=== PATIENT | female | born 1955 | race Caucasian/White ===

== ENCOUNTER 2017-06-13 19:01 | Emergency (ER) | payer MEDICAID ==
[~2017-06-13] VITALS: Ht 154.9 cm; Wt 80.3 kg
[~2017-06-13 19:01] MED LIST: HYDR-3193 PO; IBUP-1985 PO; LEVO50TA8 PO
[2017-06-13 19:42] VITALS: BP 142/89
[2017-06-13] MEDS ORDERED: diazepam 5mg tablet PO ONE (21:00)
[2017-06-13] MEDS ORDERED: ketorolac tromethamine 15mg/ml inj. IM ONE (21:00)
[2017-06-13] MEDS ORDERED: METH-360 PO (21:04)
[2017-06-13] MEDS ORDERED: IBUP-1985 PO (21:04)
== END 2017-06-13 21:41 | disposition home or self-care (01) ==
LOC: ER 19:01
DX: M54.5 Low back pain (principal); F32.9 Major depressive disorder, single episode, unspecified; Z88.2 Allergy status to sulfonamides; Z88.0 Allergy status to penicillin; Z79.899 Other long term (current) drug therapy; Z90.710 Acquired absence of both cervix and uterus; Z90.89 Acquired absence of other organs
CPT/HCPCS: 96372; 99283; J1885

== ENCOUNTER 2017-09-10 22:06 | Emergency (ER) | payer MEDICAID ==
[~2017-09-10] VITALS: Ht 154.9 cm; Wt 80.0 kg
[~2017-09-10 22:06] MED LIST changes: +METH-360 PO
[2017-09-10 22:09] VITALS: BP 128/75
[2017-09-10 22:51] LABS: BASOPHILS % (AUTO) 0.8 % (0-1); EOSINOPHILS # (AUTO) 0.2 X10'3 (0-0.9); EOSINOPHILS % (AUTO) 4.2 % (0-6); HEMATOCRIT 37.2 % (35.0-45.0); HEMOGLOBIN 12.5 g/dl (12.0-16.0); LYMPHOCYTES # (AUTO) 1.4 X10'3 (1.1-4.8); LYMPHOCYTES % (AUTO) 25.5 % (21-51); MEAN CORPUSCULAR HEMOGLOBIN 30.9 PG (27.0-31.0); MEAN CORPUSCULAR HGB CONC 33.7 % (33.0-36.5); MEAN CORPUSCULAR VOLUME 91.7 FL (78-98); MEAN PLATELET VOLUME 9.5 FL (7.4-10.4); MONOCYTES # (AUTO) 0.7 X10'3 (0-0.9); NEUTROPHILS % (AUTO) 56.5 % (42-75); PLATELET COUNT 160 X10'3 (140-440); RED BLOOD COUNT 4.05 X10'6 (4.20-5.60); RED CELL DISTRIBUTION WIDTH 12.6 % (11.5-14.5); WHITE BLOOD COUNT 5.3 X10'3 (4.5-11.0)
[2017-09-10 23:03] LABS: PARTIAL THROMBOPLASTIN TIME 26 SECONDS (22-32); PROTHROMBIN TIME 9.9 SECONDS (9.0-12.0)
[2017-09-10 23:07] LABS: ALANINE AMINOTRANSFERASE 26 U/L (12-78); ALBUMIN 3.4 G/DL (3.4-5.0); ALKALINE PHOSPHATASE 105 IU/L (46-116); ANION GAP 10 (8-16); ASPARTATE AMINO TRANSFERASE 18 U/L (10-37); BILIRUBIN,TOTAL 0.4 MG/DL (0.1-1.0); BLOOD UREA NITROGEN 16 MG/DL (7-18); BUN/CREATININE RATIO 20.3 (6.6-38.0); CALCIUM 8.9 MG/DL (8.5-10.1); CHLORIDE 108 MMOL/L (99-107); CREATININE 0.79 MG/DL (0.40-0.90); GLUCOSE 109 MG/DL (70-104); POTASSIUM 3.7 MMOL/L (3.5-5.1); SODIUM 144 MMOL/L (135-145); TOTAL CARBON DIOXIDE 26.3 MMOL/L (24-32); TOTAL PROTEIN 6.7 G/DL (6.4-8.2); eGFR 74 ML/MIN
[2017-09-11] MEDS ORDERED: HYDR-569 PO (02:12)
== END 2017-09-11 02:27 | disposition home or self-care (01) ==
LOC: ER 22:06
DX: R07.89 Other chest pain (principal); Z90.710 Acquired absence of both cervix and uterus; Z88.0 Allergy status to penicillin; Z88.2 Allergy status to sulfonamides; Z79.899 Other long term (current) drug therapy; Z90.89 Acquired absence of other organs
CPT/HCPCS: 36415; 71045; 80053; 84484; 85025; 85610; 85730; 93005; 99285

== ENCOUNTER 2018-04-01 10:40 | Emergency (ER) | payer MEDICAID ==
[~2018-04-01] VITALS: Ht 154.9 cm; Wt 77.3 kg
[~2018-04-01 10:40] MED LIST changes: +HYDR-4383 PO
--- NOTE | 2018-04-01 10:55 | NUR ---
PTS PILLS COUNTED AND FOUND TO HAVE TAKEN 7 PILLS. POSION CONTROL CONTACTED. HE STATES THIS IS STILL A LOW DOSE AND WOULD NOT EXPECT MANY S/S. THE STATES THE EFFECTS WOULD BE DELAYED A COUPLE OF DAYS WITH LARGER DOSE. RECOMENDS BASELINE TSH, CMP, ASA, AND TYLENOL LEVEL.
--- NOTE | 2018-04-01 11:00 | NUR ---
pt is 62 yo female BIB boyfriend of 14 years for suicide attempt, pt took 7 tabs of levothryrine 100 mcg at 1030 today, pt said she and her boyfriend are breaking up because he thinks she is cheating, she denies cheating, pt is calm, cooperative, tearful, resp even and unlabored, skin p/w/d, pt says she sees psych provider at [facility], unable to take meds for depression "they make me sick", has attempted suicide in the past 3x (last time was 4-5 years ago) by overdosing on medications.
--- NOTE | 2018-04-01 11:08 | NUR ---
Carlos ALCALA at bedside to meera urena
[2018-04-01] MEDS ORDERED: PANT-47 PO (11:19)
[2018-04-01] MEDS ORDERED: LEVO100T PO (11:19)
--- NOTE | 2018-04-01 11:22 | NUR ---
pt amb with steady gait to restroom
[2018-04-01 11:27] LABS: BASOPHILS # (AUTO) 0.1 X10'3 (0-0.2); BASOPHILS % (AUTO) 1.1 % (0-1); EOSINOPHILS # (AUTO) 0.2 X10'3 (0-0.9); EOSINOPHILS % (AUTO) 3.6 % (0-6); HEMATOCRIT 38.2 % (35.0-45.0); HEMOGLOBIN 12.9 g/dl (12.0-16.0); LYMPHOCYTES # (AUTO) 1.1 X10'3 (1.1-4.8); LYMPHOCYTES % (AUTO) 23.8 % (21-51); MEAN CORPUSCULAR HEMOGLOBIN 31.1 PG (27.0-31.0); MEAN CORPUSCULAR HGB CONC 33.9 % (33.0-36.5); MEAN CORPUSCULAR VOLUME 91.9 FL (78-98); MEAN PLATELET VOLUME 9.4 FL (7.4-10.4); MONOCYTES # (AUTO) 0.5 X10'3 (0-0.9); MONOCYTES % (AUTO) 10.7 % (2-12); NEUTROPHILS # (AUTO) 2.9 X10'3 (1.8-7.7); NEUTROPHILS % (AUTO) 60.8 % (42-75); PLATELET COUNT 161 X10'3 (140-440); RED BLOOD COUNT 4.16 X10'6 (4.20-5.60); RED CELL DISTRIBUTION WIDTH 12.8 % (11.5-14.5); WHITE BLOOD COUNT 4.8 X10'3 (4.5-11.0)
[2018-04-01 11:41] LABS: ALANINE AMINOTRANSFERASE 22 U/L (12-78); ALBUMIN 3.3 G/DL (3.4-5.0); ALKALINE PHOSPHATASE 76 IU/L (46-116); ANION GAP 10 (8-16); ASPARTATE AMINO TRANSFERASE 18 U/L (10-37); BILIRUBIN,TOTAL 0.7 MG/DL (0.1-1.0); BLOOD UREA NITROGEN 10 MG/DL (7-18); BUN/CREATININE RATIO 15.4 (6.6-38.0); CALCIUM 8.3 MG/DL (8.5-10.1); CHLORIDE 106 MMOL/L (99-107); CREATININE 0.65 MG/DL (0.40-0.90); GLUCOSE 95 MG/DL (70-104); POTASSIUM 3.6 MMOL/L (3.5-5.1); SODIUM 141 MMOL/L (135-145); TOTAL CARBON DIOXIDE 25.3 MMOL/L (24-32); TOTAL PROTEIN 6.7 G/DL (6.4-8.2); eGFR > 90 ML/MIN
[2018-04-01 11:50] LABS: ETHANOL < 0.010 GM/DL (0.0-0.010)
[2018-04-01 12:09] LABS: URINE AMPHETAMINE SCREEN NEGATIVE (Neg); URINE BARBITUATE SCREEN NEGATIVE (Neg); URINE BENZODIAZEPINES SCREEN NEGATIVE (Neg); URINE CANNABINOID SCREEN NEGATIVE (Neg); URINE COCAINE SCREEN NEGATIVE (Neg); URINE HCG NEGATIVE (NEG); URINE METHADONE SCREEN NEGATIVE (Neg); URINE OPIATE SCREEN NEGATIVE (Neg); URINE PHENCYCLIDINE SCREEN NEGATIVE (Neg)
--- NOTE | 2018-04-01 12:30 | NUR ---
pt is resting quietly on gurney,
--- NOTE | 2018-04-01 13:15 | NUR ---
pt continues to rest quietly on gurney, gave report to telepsych provider
--- NOTE | 2018-04-01 13:45 | NUR ---
TELEPSYCH PROVIDER RECOMMENDS PT CAN GO HOME WITH BOYFRIEND. WAITING FOR HER TO FAX RECOMMENDATION
--- NOTE | 2018-04-01 14:21 | NUR ---
PT RESTING QUIETLY ON GURNEY, POISON CONTROL CALLED BACK FOR UPDATE ON PT, RECOMMENDED TYLENOL AND ASPIRIN LEVEL, DC INSTRUCTIONS SHOULD INCLUDE RETURN TO ER/PMD IF HAS TREMORS, HEART RACING, FEELING AGITATED 3-4 DAYS FROM INGESTION
--- NOTE | 2018-04-01 14:58 | NUR ---
Packet faxed to [facility]
--- NOTE | 2018-04-01 15:51 | NUR ---
PATIENT HAS BEEN ESCORTED BY STAFF TO ED OVERFLOW. PATIENT IN BAY 24, HAS GREEN SCRUBS ON AND IS RESTING COMFORTABLE IN BED. RN WILL CONTINUE TO MONITOR
[2018-04-01 16:12] VITALS: BP 118/46
--- NOTE | 2018-04-01 16:44 | NUR ---
I SPOKE TO PATIENT AND GOT APPROVAL TO CALL BOYFRIEND ELISEO AT [phone] AND TALK WITH HIM ABOUT PICKING UP JUSTIN AND HER SAFTEY CONCERNS. I CALLED ELISEO AND THERE WAS NO ANSWER.
--- NOTE | 2018-04-01 16:45 | NUR ---
SPOKE TO ELISEO PATIENT BOYFRIEND HE HAS AGREED TO [employer] PATIENT AND HE WILL KEEP THE PATIENT HIS HOUSE. PATIENT WILL NOT BE LEFT ALONE. PATIENT WILL FOLLOW UP WITH HER DOCTOR AT [facility]. HAS BEEN NOTIFIED AND PATIENT WILL BE DISCHARGED HOME WITH BOYFRIEND.
--- NOTE | 2018-04-01 17:20 | NUR ---
PATIENT HAS BEEN DISCHARGED. SHE HAS NOT SUICIDAL IDEATIONS. ALL BELONGING SENT. SHE WILL FOLLOW UP NEXT WEEK WITH [facility]. PATIENT AND BOYFRIEND HAVE BEEN EDUCATED ON KEEPING THE PATIENT SAFE, TO FOLLOW UP WITH [facility] AND RETURN TO THE HOSPITAL IF SYMPTONS WORSEN.
== END 2018-04-01 17:33 | disposition home or self-care (01) ==
LOC: ER 10:41
DX: T38.1X2A Poisoning by thyroid hormones and substitutes, intentional self-harm, initial encounter (principal); R45.851 Suicidal ideations; F32.9 Major depressive disorder, single episode, unspecified; Z90.710 Acquired absence of both cervix and uterus; Z88.0 Allergy status to penicillin; Z88.2 Allergy status to sulfonamides; Z79.899 Other long term (current) drug therapy; Z98.890 Other specified postprocedural states; Y92.89 Other specified places as the place of occurrence of the external cause
CPT/HCPCS: 36415; 80053; 80305; 80320; 81025; 84443; 85025; 93005; 99284

== ENCOUNTER 2018-06-30 16:43 | Emergency (ER) | payer MEDICAID ==
[~2018-06-30] VITALS: Ht 154.9 cm; Wt 77.3 kg
[~2018-06-30 16:43] MED LIST changes: -HYDR-3193 PO; -HYDR-4383 PO; -IBUP-1985 PO; +LEVO100T PO; -LEVO50TA8 PO; -METH-360 PO; +PANT-47 PO
[2018-06-30 17:29] LABS: BASOPHILS % (AUTO) 0.4 % (0-1); EOSINOPHILS # (AUTO) 0.2 X10'3 (0-0.9); EOSINOPHILS % (AUTO) 3.9 % (0-6); HEMATOCRIT 35.3 % (35.0-45.0); HEMOGLOBIN 11.8 g/dl (12.0-16.0); LYMPHOCYTES # (AUTO) 1.3 X10'3 (1.1-4.8); LYMPHOCYTES % (AUTO) 23.7 % (21-51); MEAN CORPUSCULAR HEMOGLOBIN 31.1 PG (27.0-31.0); MEAN CORPUSCULAR HGB CONC 33.6 g/dL (33.0-36.5); MEAN CORPUSCULAR VOLUME 92.7 FL (78-98); MONOCYTES # (AUTO) 0.7 X10'3 (0-0.9); MONOCYTES % (AUTO) 12.4 % (2-12); NEUTROPHILS # (AUTO) 3.4 X10'3 (1.8-7.7); NEUTROPHILS % (AUTO) 59.6 % (42-75); PLATELET COUNT 167 X10'3 (140-440); RED BLOOD COUNT 3.81 X10'6 (4.20-5.60); RED CELL DISTRIBUTION WIDTH 12.8 % (11.5-14.5); WHITE BLOOD COUNT 5.7 X10'3 (4.5-11.0)
[2018-06-30 17:45] LABS: PARTIAL THROMBOPLASTIN TIME 27 SECONDS (22-32); PROTHROMBIN TIME 10.3 SECONDS (9.0-12.0)
[2018-06-30 17:47] LABS: ALANINE AMINOTRANSFERASE 21 U/L (12-78); ALBUMIN 3.3 G/DL (3.4-5.0); ALBUMIN/GLOBULIN RATIO 1.1 (1.1-1.5); ALKALINE PHOSPHATASE 76 IU/L (46-116); ANION GAP 5 (8-16); ASPARTATE AMINO TRANSFERASE 15 U/L (10-37); BILIRUBIN,TOTAL 0.5 MG/DL (0.1-1.0); BLOOD UREA NITROGEN 22 MG/DL (7-18); BUN/CREATININE RATIO 25.9 (6.6-38.0); CALCIUM 8.8 MG/DL (8.5-10.1); CHLORIDE 108 MMOL/L (99-107); CREATININE 0.85 MG/DL (0.40-0.90); GLUCOSE 101 MG/DL (70-104); POTASSIUM 3.3 MMOL/L (3.5-5.1); SODIUM 142 MMOL/L (135-145); TOTAL CARBON DIOXIDE 29.1 MMOL/L (24-32); TOTAL PROTEIN 6.4 G/DL (6.4-8.2); eGFR 68 ML/MIN
[2018-06-30 20:12] VITALS: BP 136/76
--- NOTE | 2018-06-30 20:13 | NUR ---
pt is resting quietly on gurney, no c/o chest pain/pressure, "I just have shortness of breath at times but i am ready to go home"
== END 2018-06-30 20:25 | disposition home or self-care (01) ==
LOC: ER 16:53
DX: R07.89 Other chest pain (principal); R06.00 Dyspnea, unspecified; R06.02 Shortness of breath; R05 Cough; Z90.710 Acquired absence of both cervix and uterus; Z98.890 Other specified postprocedural states; Z88.0 Allergy status to penicillin; Z88.2 Allergy status to sulfonamides; Z79.899 Other long term (current) drug therapy
CPT/HCPCS: 36415; 71046; 80053; 84484; 85025; 85610; 85730; 93005; 99284

== ENCOUNTER 2019-03-28 12:59 | Emergency (ER) | payer MEDICAID ==
[~2019-03-28] VITALS: Ht 154.9 cm; Wt 77.3 kg
[2019-03-28 13:17] VITALS: BP 137/75
== END 2019-03-28 14:35 | disposition home or self-care (01) ==
LOC: ER 13:00
DX: M25.561 Pain in right knee (principal); Z90.710 Acquired absence of both cervix and uterus; Z98.890 Other specified postprocedural states; Z90.89 Acquired absence of other organs; Z88.0 Allergy status to penicillin; Z88.2 Allergy status to sulfonamides; Z79.899 Other long term (current) drug therapy; W01.0XXA Fall on same level from slipping, tripping and stumbling without subsequent striking against object, initial encounter; Y93.01 Activity, walking, marching and hiking; Y92.89 Other specified places as the place of occurrence of the external cause; Y99.9 Unspecified external cause status
CPT/HCPCS: 73564; 99283

== ENCOUNTER 2020-09-10 15:50 | Emergency (ER) | payer MEDICAID ==
[~2020-09-10] VITALS: Ht 154.9 cm; Wt 76.7 kg
[2020-09-10 16:54] VITALS: BP 145/74
== END 2020-09-10 21:22 | disposition home or self-care (01) ==
LOC: ER 15:50
DX: M25.561 Pain in right knee (principal); M71.21 Synovial cyst of popliteal space [Baker], right knee; M25.461 Effusion, right knee; Z90.710 Acquired absence of both cervix and uterus; Z90.89 Acquired absence of other organs; Z88.0 Allergy status to penicillin; Z88.2 Allergy status to sulfonamides; Z79.899 Other long term (current) drug therapy
CPT/HCPCS: 29505; 73564; 93971; 99284

== ENCOUNTER 2020-11-30 11:57 | Inpatient (IN) | payer MEDICAID ==
[~2020-11-30] VITALS: Ht 154.9 cm; Wt 81.8 kg
[2020-11-30 12:28] LABS: BASOPHILS % (AUTO) 0.5 % (0-1); EOSINOPHILS % (AUTO) 0.6 % (0-6); HEMATOCRIT 37.2 % (35.0-45.0); HEMOGLOBIN 12.5 g/dl (12.0-16.0); LYMPHOCYTES % (AUTO) 12.8 % (21-51); MEAN CORPUSCULAR HEMOGLOBIN 31.4 PG (27.0-31.0); MEAN CORPUSCULAR HGB CONC 33.6 g/dL (33.0-36.5); MEAN CORPUSCULAR VOLUME 93.5 FL (78-98); MEAN PLATELET VOLUME 8.8 FL (7.4-10.4); MONOCYTES % (AUTO) 13.1 % (2-12); NEUTROPHILS # (AUTO) 5.8 X10'3 (1.8-7.7); PLATELET COUNT 188 X10'3 (140-440); RED BLOOD COUNT 3.98 X10'6 (4.20-5.60); RED CELL DISTRIBUTION WIDTH 12.4 % (11.5-14.5); WHITE BLOOD COUNT 7.9 X10'3 (4.5-11.0)
[2020-11-30 12:43] LABS: ALANINE AMINOTRANSFERASE 25 U/L (12-78); ALBUMIN 3.5 G/DL (3.4-5.0); ALBUMIN/GLOBULIN RATIO 1.1 (1.1-1.5); ALKALINE PHOSPHATASE 90 IU/L (46-116); ANION GAP 10 (8-16); ASPARTATE AMINO TRANSFERASE 57 U/L (10-37); BILIRUBIN,TOTAL 0.7 MG/DL (0.1-1.0); BLOOD UREA NITROGEN 20 MG/DL (7-18); BUN/CREATININE RATIO 21.3 (6.6-38.0); CALCIUM 8.6 MG/DL (8.5-10.1); CHLORIDE 107 MMOL/L (99-107); CREATININE 0.94 MG/DL (0.40-0.90); GLUCOSE 119 MG/DL (70-104); POTASSIUM 3.9 MMOL/L (3.5-5.1); SODIUM 144 MMOL/L (135-145); TOTAL CARBON DIOXIDE 27.3 MMOL/L (24-32); TOTAL PROTEIN 6.7 G/DL (6.4-8.2); eGFR 60 ML/MIN
[2020-11-30] MEDS ORDERED: heparin 25,000 UNIT/250ml bag 250 ML IV SCH ×2 (12:55→14:35)
[2020-11-30] MEDS ORDERED: heparin 10,000 units/1 ML INJ IV ONE ×3 (12:55→14:35)
[2020-11-30] MEDS ORDERED: heparin 10,000 units/1 ML INJ IV PRN ×2 (12:55→14:35)
[2020-11-30] MEDS ORDERED: ESTR10TA4 VG (13:02)
[2020-11-30] MEDS ORDERED: PANT20TA18 PO (13:02)
--- NOTE | 2020-11-30 13:21 | NUR ---
Troponin value received from lab, reported to Dr. Plasencia. Patient placed in bed 2, connected to monitor, and heparin gtt initiated.
[2020-11-30 13:27] LABS: PARTIAL THROMBOPLASTIN TIME 26 SECONDS (22-32)
[2020-11-30] MEDS ORDERED: nitroGLYCERIN 0.4mg SUBLingual tab SL PRN (13:35)
[2020-11-30] MEDS ORDERED: atorvastatin 20mg tablet PO SCH (13:40)
[2020-11-30] MEDS ORDERED: ondansetron/PF 4mg/2ml inj IV ONE (14:00)
[2020-11-30] MEDS ORDERED: LIDOcaine/PRILOcaine 5gm cream TP ONE (14:15)
[2020-11-30] MEDS ORDERED: morphine 2 MG/ML inj. syringe IV ONE (14:30)
[2020-11-30] MEDS ORDERED: LIDOcaine 1% (10mg/ml)w/preservative injection 20ml MDV ONE (14:32)
[2020-11-30] MEDS ORDERED: midazolam 1 mg/ML 2ml injection ONE (14:32)
[2020-11-30] MEDS ORDERED: iohexol 350 MG/ML 50ML vial IV ONE (14:32)
[2020-11-30] MEDS ORDERED: iohexol 350MG/ML 100ml bottle IV ONE (14:32)
[2020-11-30] MEDS ORDERED: heparin 1,000unit/ml 10ml vial 10 ML ONE (14:32)
[2020-11-30] MEDS ORDERED: nitroGLYCERIN-Tridil 50MG/D5W 250 ML IV ONE (14:32)
[2020-11-30] MEDS ORDERED: fentaNYL/PF 50MCG/1 ML 2ML syringe ONE (14:33)
[2020-11-30] MEDS ORDERED: acetaminophen 325mg tablet PO PRN ×2 (14:35)
[2020-11-30] MEDS ORDERED: magnesium hydroxide 30ml (MOM) UD suspension PO PRN (14:35)
[2020-11-30] MEDS ORDERED: morphine 2 MG/ML inj. syringe IV PRN ×2 (14:35)
[2020-11-30] MEDS ORDERED: mag hydrox/Alum hydrox/simeth 30ml oral suspension PO PRN (14:35)
[2020-11-30] MEDS ORDERED: ondansetron/PF 4mg/2ml inj IV PRN (14:35)
[2020-11-30 14:51] LABS: BASOPHILS % (AUTO) 0.5 % (0-1); EOSINOPHILS # (AUTO) 0.1 X10'3 (0-0.9); EOSINOPHILS % (AUTO) 0.7 % (0-6); HEMATOCRIT 33.4 % (35.0-45.0); HEMOGLOBIN 11.2 g/dl (12.0-16.0); LYMPHOCYTES # (AUTO) 1.1 X10'3 (1.1-4.8); LYMPHOCYTES % (AUTO) 15.4 % (21-51); MEAN CORPUSCULAR HEMOGLOBIN 31.8 PG (27.0-31.0); MEAN CORPUSCULAR HGB CONC 33.6 g/dL (33.0-36.5); MEAN CORPUSCULAR VOLUME 94.5 FL (78-98); MEAN PLATELET VOLUME 9.2 FL (7.4-10.4); MONOCYTES % (AUTO) 13.2 % (2-12); NEUTROPHILS # (AUTO) 5.2 X10'3 (1.8-7.7); NEUTROPHILS % (AUTO) 70.2 % (42-75); PLATELET COUNT 160 X10'3 (140-440); RED BLOOD COUNT 3.54 X10'6 (4.20-5.60); RED CELL DISTRIBUTION WIDTH 12.6 % (11.5-14.5); WHITE BLOOD COUNT 7.5 X10'3 (4.5-11.0)
[2020-11-30 15:01] LABS: HEMOGLOBIN A1C 5.4 % (4.5-6.2)
[2020-11-30] MEDS ORDERED: verapamil 2.5 mg/ml inj IV ONE (15:07)
[2020-11-30] MEDS ORDERED: DOPamine 400mg/D5W 250ml 250 ML IV ONE (15:14)
[2020-11-30] MEDS ORDERED: NORepinephrine 1 mg/ml inj IV ONE (15:22)
[2020-11-30] MEDS ORDERED: normal saline 1000ml 1,000 ML IV ONE (16:55)
--- NOTE | 2020-11-30 16:55 | NUR ---
Bp trending down 85/ 55, 85/42, call to adal's office. pt sat on ra dropped to 90-92% felt mild sob, added nc2L- 95-96%, no new c/p, n present on arrival resolved spont- no n currently.
--- NOTE | 2020-11-30 17:16 | NUR ---
Call back from [facility], no reply from [facility]. reviewed total fluids today and completed cath procedure. orders received
[2020-11-30] MEDS ORDERED: normal saline 500ml IV soln 500 ML IV ONE (17:20)
--- NOTE | 2020-11-30 17:45 | NUR ---
Spoke with MD Bonds. He is aware the pt's BP has been running soft. He says he is ok with her systolic BP at 80-90s.
[2020-11-30 18:00] VITALS: BP 93/68
--- NOTE | 2020-11-30 18:33 | NUR ---
Stopped Bolus at 250ml. pt ls having very faint crackles at base. no sob, sbp improved to sbp 90's map above 70. R groin cont to be without hematoma, no bleeding, pulses 2+PT and DP. a/ox4, no edema. bs positive, bm yesterday she reports, daughters at bedside. IV Rarm with +blood return, on mobile 7 sr. skin to her back was intact, no redness to bony prominences, voided in bedpan at 1700 350ml clear yellow urine. shanon richardson
--- NOTE | 2020-11-30 19:23 | NUR ---
Page Sent PAGER ID: [phone] MESSAGE: RE: Josi [place] [id number]. Pt here with Takosubo. Heart cath today. BP soft, 80s/90s. She is complaining of worsening chest pain. EF is 45% and she has received 2.5 L of fluid since yesterday. BP support? Please advise. Nohemi 2027
[2020-11-30] MEDS: DOBUTamine-DoBUTrex 500mg/D5W 250 ML IV SCH (19:30)
[2020-11-30] MEDS: docusate sod 100mg capsule PO SCH (20:31)
[2020-11-30] MEDS: carVEDilol 3.125mg tablet PO SCH (20:31)
[2020-11-30] MEDS: HYDROcodone/acetaminophen 5mg/325mg tablet PO PRN (20:33)
[2020-11-30 22:00] VITALS: BP 88/65
[2020-12-01] VITALS (8 sets, daily range): BP systolic 80–89; BP diastolic 46–62
[2020-12-01] MEDS: HYDROcodone/acetaminophen 5mg/325mg tablet PO PRN ×2 (05:26→21:13)
[2020-12-01 06:55] LABS: ALBUMIN 2.8 G/DL (3.4-5.0); ANION GAP 6 (8-16); BLOOD UREA NITROGEN 19 MG/DL (7-18); BUN/CREATININE RATIO 24.4 (6.6-38.0); CALCIUM 8.4 MG/DL (8.5-10.1); CHLORIDE 111 MMOL/L (99-107); CHOL/HDL RATIO 2.6 (0.00-4.99); CHOLESTEROL 167 MG/DL (0-200); CREATININE 0.78 MG/DL (0.40-0.90); GLUCOSE 99 MG/DL (70-104); HDL CHOLESTEROL 65 MG/DL (35-60); LDL CHOLESTEROL 87 MG/DL (50-100); POTASSIUM 3.9 MMOL/L (3.5-5.1); SODIUM 143 MMOL/L (135-145); TOTAL CARBON DIOXIDE 25.6 MMOL/L (24-32); TRIGLYCERIDES 61 MG/DL (20-135); eGFR 74 ML/MIN
[2020-12-01 07:00] LABS: BASOPHILS % (AUTO) 0.6 % (0-1); EOSINOPHILS # (AUTO) 0.2 X10'3 (0-0.9); EOSINOPHILS % (AUTO) 3.3 % (0-6); HEMATOCRIT 31.4 % (35.0-45.0); HEMOGLOBIN 10.6 g/dl (12.0-16.0); LYMPHOCYTES # (AUTO) 0.9 X10'3 (1.1-4.8); LYMPHOCYTES % (AUTO) 17.4 % (21-51); MEAN CORPUSCULAR HEMOGLOBIN 31.5 PG (27.0-31.0); MEAN CORPUSCULAR HGB CONC 33.7 g/dL (33.0-36.5); MEAN CORPUSCULAR VOLUME 93.7 FL (78-98); MEAN PLATELET VOLUME 9.5 FL (7.4-10.4); MONOCYTES # (AUTO) 0.7 X10'3 (0-0.9); MONOCYTES % (AUTO) 13.6 % (2-12); NEUTROPHILS # (AUTO) 3.4 X10'3 (1.8-7.7); NEUTROPHILS % (AUTO) 65.1 % (42-75); PLATELET COUNT 135 X10'3 (140-440); RED BLOOD COUNT 3.35 X10'6 (4.20-5.60); RED CELL DISTRIBUTION WIDTH 12.9 % (11.5-14.5); WHITE BLOOD COUNT 5.2 X10'3 (4.5-11.0)
[2020-12-01] MEDS: losartan 25mg tablet PO SCH (08:00)
[2020-12-01] MEDS: carVEDilol 3.125mg tablet PO SCH ×2 (08:00→20:00)
[2020-12-01] MEDS: docusate sod 100mg capsule PO SCH ×2 (09:48→21:12)
[2020-12-01] MEDS: pantoprazole 40mg Tablet.DR PO SCH (09:48)
[2020-12-01] MEDS: aspirin 81mg, enteric-coated 1 TAB TABLET.DR PO SCH (09:48)
[2020-12-01] MEDS: DOBUTamine-DoBUTrex 500mg/D5W 250 ML IV SCH (09:54)
[2020-12-01 10:06] LABS: MAGNESIUM 2.1 MG/DL (1.5-2.4)
--- NOTE | 2020-12-01 11:01 | NUR ---
Patient in room PCU 3023. I have received report from Nohemi GARDUNO and had the opportunity to ask questions and assume patient care.
--- NOTE | 2020-12-01 12:14 | NUR ---
At bedside Dr. Bonds gave me orders for an EKG and PBNP for am 12/02/20 and to turn the dobutamine up to 5 mcg
[2020-12-01] MEDS ORDERED: DOBUTamine-DoBUTrex 500mg/D5W 250 ML IV SCH ×2 (12:20→13:55)
[2020-12-01] MEDS ORDERED: amiodarone 150mg/dext, iso-os 100 ML IV ONE (13:55)
[2020-12-01] MEDS: amiodarone/D5 360MG/200ML BAG 200 ML IV SCH ×2 (16:15→21:21)
--- NOTE | 2020-12-01 17:50 | NUR ---
Dr. Atkins gave me telephone order to start amio gtt per protocol minus the loading dose because it was given earlier
--- NOTE | 2020-12-01 18:12 | NUR ---
Problems reprioritized. Patient report given, questions answered & plan of care reviewed with Nohemi GARDUNO.
[2020-12-01] MEDS: apixaban 5mg tablet PO SCH (21:12)
[2020-12-02] VITALS (8 sets, daily range): BP systolic 78–112; BP diastolic 49–73
[2020-12-02] MEDS: HYDROcodone/acetaminophen 5mg/325mg tablet PO PRN (01:49)
[2020-12-02] MEDS: amiodarone/D5 360MG/200ML BAG 200 ML IV SCH ×2 (04:17→10:10)
[2020-12-02 07:12] LABS: BASOPHILS % (AUTO) 0.6 % (0-1); EOSINOPHILS # (AUTO) 0.2 X10'3 (0-0.9); EOSINOPHILS % (AUTO) 4.2 % (0-6); HEMATOCRIT 29.5 % (35.0-45.0); LYMPHOCYTES # (AUTO) 1.2 X10'3 (1.1-4.8); LYMPHOCYTES % (AUTO) 21.8 % (21-51); MEAN CORPUSCULAR HEMOGLOBIN 31.9 PG (27.0-31.0); MEAN CORPUSCULAR HGB CONC 33.9 g/dL (33.0-36.5); MEAN CORPUSCULAR VOLUME 94.1 FL (78-98); MEAN PLATELET VOLUME 9.8 FL (7.4-10.4); MONOCYTES # (AUTO) 0.7 X10'3 (0-0.9); MONOCYTES % (AUTO) 13.9 % (2-12); NEUTROPHILS # (AUTO) 3.2 X10'3 (1.8-7.7); NEUTROPHILS % (AUTO) 59.5 % (42-75); PLATELET COUNT 128 X10'3 (140-440); RED BLOOD COUNT 3.13 X10'6 (4.20-5.60); RED CELL DISTRIBUTION WIDTH 12.7 % (11.5-14.5); WHITE BLOOD COUNT 5.4 X10'3 (4.5-11.0)
[2020-12-02 07:56] LABS: ALBUMIN 2.5 G/DL (3.4-5.0); ANION GAP 10 (8-16); BLOOD UREA NITROGEN 20 MG/DL (7-18); BUN/CREATININE RATIO 28.2 (6.6-38.0); CALCIUM 7.9 MG/DL (8.5-10.1); CHLORIDE 110 MMOL/L (99-107); CREATININE 0.71 MG/DL (0.40-0.90); GLUCOSE 91 MG/DL (70-104); POTASSIUM 3.9 MMOL/L (3.5-5.1); SODIUM 143 MMOL/L (135-145); TOTAL CARBON DIOXIDE 22.6 MMOL/L (24-32); eGFR 83 ML/MIN
[2020-12-02] MEDS: aspirin 81mg, enteric-coated 1 TAB TABLET.DR PO SCH (08:00)
[2020-12-02] MEDS: carVEDilol 3.125mg tablet PO SCH (08:00)
[2020-12-02] MEDS: losartan 25mg tablet PO SCH (08:00)
[2020-12-02] MEDS: docusate sod 100mg capsule PO SCH ×2 (10:10→20:24)
[2020-12-02] MEDS: atorvastatin 20mg tablet PO SCH (10:11)
[2020-12-02] MEDS: apixaban 5mg tablet PO SCH ×2 (10:11→20:23)
[2020-12-02] MEDS: pantoprazole 40mg Tablet.DR PO SCH (10:11)
[2020-12-02] MEDS ORDERED: midodrine tablet 2.5 MG TABLET PO SCH (13:00)
[2020-12-02 13:03] LABS: ALANINE AMINOTRANSFERASE 20 U/L (12-78); ALBUMIN/GLOBULIN RATIO 0.9 (1.1-1.5); ALKALINE PHOSPHATASE 64 IU/L (46-116); ASPARTATE AMINO TRANSFERASE 37 U/L (10-37); BILIRUBIN,DIRECT 0.1 MG/DL (0-0.3); BILIRUBIN,TOTAL 0.4 MG/DL (0.1-1.0); TOTAL PROTEIN 5.3 G/DL (6.4-8.2)
[2020-12-02] MEDS: amiodarone 200mg tablet PO SCH ×2 (13:15→20:24)
[2020-12-02] MEDS: midodrine 5mg tablet PO SCH ×2 (13:15→20:24)
--- NOTE | 2020-12-02 14:38 | NUR ---
dobutamine and amio DC and off.
--- NOTE | 2020-12-02 18:25 | NUR ---
Problems reprioritized. Patient report given, questions answered & plan of care reviewed with Gabrielle GARDUNO.
[2020-12-03 02:00] VITALS: BP 111/75
--- NOTE | 2020-12-03 03:45 | NUR ---
Pt in bed resting no signs of distress noted , vital signs stable will continue to monitor and report changes
--- NOTE | 2020-12-03 06:11 | NUR ---
Patient in room PCU 3023. I have received report from Gabrielle GARDUNO and had the opportunity to ask questions and assume patient care.
--- NOTE | 2020-12-03 06:36 | NUR ---
Problems reprioritized. Patient report given, questions answered & plan of care reviewed with Monika GARDUNO .
[2020-12-03 06:54] LABS: BASOPHILS % (AUTO) 0.5 % (0-1); EOSINOPHILS # (AUTO) 0.2 X10'3 (0-0.9); EOSINOPHILS % (AUTO) 2.8 % (0-6); HEMATOCRIT 32.4 % (35.0-45.0); HEMOGLOBIN 10.8 g/dl (12.0-16.0); LYMPHOCYTES % (AUTO) 16.9 % (21-51); MEAN CORPUSCULAR HEMOGLOBIN 31.6 PG (27.0-31.0); MEAN CORPUSCULAR HGB CONC 33.4 g/dL (33.0-36.5); MEAN CORPUSCULAR VOLUME 94.5 FL (78-98); MEAN PLATELET VOLUME 10.3 FL (7.4-10.4); MONOCYTES # (AUTO) 0.8 X10'3 (0-0.9); MONOCYTES % (AUTO) 14.2 % (2-12); NEUTROPHILS # (AUTO) 3.8 X10'3 (1.8-7.7); NEUTROPHILS % (AUTO) 65.6 % (42-75); PLATELET COUNT 133 X10'3 (140-440); RED BLOOD COUNT 3.43 X10'6 (4.20-5.60); RED CELL DISTRIBUTION WIDTH 12.5 % (11.5-14.5); WHITE BLOOD COUNT 5.8 X10'3 (4.5-11.0)
[2020-12-03 07:00] VITALS: BP 111/75
[2020-12-03] MEDS ORDERED: levoTHYROXINE 25mcg tablet PO SCH (07:00)
[2020-12-03 07:23] LABS: ALBUMIN 2.7 G/DL (3.4-5.0); ANION GAP 13 (8-16); BLOOD UREA NITROGEN 17 MG/DL (7-18); BUN/CREATININE RATIO 23.9 (6.6-38.0); CHLORIDE 109 MMOL/L (99-107); CREATININE 0.71 MG/DL (0.40-0.90); GLUCOSE 80 MG/DL (70-104); POTASSIUM 3.8 MMOL/L (3.5-5.1); SODIUM 143 MMOL/L (135-145); TOTAL CARBON DIOXIDE 21.1 MMOL/L (24-32); eGFR 83 ML/MIN
[2020-12-03] MEDS ORDERED: ASPI-1071 PO (08:35)
[2020-12-03] MEDS ORDERED: MIDO5TAB4 PO (08:35)
[2020-12-03] MEDS ORDERED: LEVO25TA7 PO (08:35)
[2020-12-03] MEDS ORDERED: AMIO200T67 PO (08:35)
[2020-12-03] MEDS ORDERED: APIX5TAB3 PO (08:35)
[2020-12-03] MEDS ORDERED: ATOR20TA66 PO (08:35)
[2020-12-03] MEDS: docusate sod 100mg capsule PO SCH (08:54)
[2020-12-03] MEDS: midodrine 5mg tablet PO SCH ×2 (08:54→13:10)
[2020-12-03] MEDS: amiodarone 200mg tablet PO SCH (08:54)
[2020-12-03] MEDS: aspirin 81mg, enteric-coated 1 TAB TABLET.DR PO SCH (08:54)
[2020-12-03] MEDS: apixaban 5mg tablet PO SCH (08:54)
[2020-12-03] MEDS: atorvastatin 20mg tablet PO SCH (08:54)
[2020-12-03] MEDS: pantoprazole 40mg Tablet.DR PO SCH (08:54)
[2020-12-03 11:00] VITALS: BP 101/78
[2020-12-03] MEDS ORDERED: FURO-150 PO (11:45)
--- NOTE | 2020-12-03 14:38 | NUR ---
Patient left with daughter and was DC to home. PIV was removed with cannula intact. RX were escripted to [facility] in [place]. DC instructions and warning s/s were reviewed with the patient and she verbalized understanding. Patient took all belongings with her. She was alert, oriented, and appropriate at time of DC.
== END 2020-12-03 14:20 | disposition home health service (06) | DRG 190 ==
LOC: ER 11:58 → PCU 3S 14:35
PROVIDERS: ADMIT Internal Medicine; ATTEND Internal Medicine
PROC: 4A023N7 Measurement of Cardiac Sampling and Pressure, Left Heart, Percutaneous Approach (ICD-10-PCS; principal; 2020-11-30)
PROC: B2111ZZ Fluoroscopy of Multiple Coronary Arteries using Low Osmolar Contrast (ICD-10-PCS; 2020-11-30)
PROC: B2151ZZ Fluoroscopy of Left Heart using Low Osmolar Contrast (ICD-10-PCS; 2020-11-30)
PROC: B41F1ZZ Fluoroscopy of Right Lower Extremity Arteries using Low Osmolar Contrast (ICD-10-PCS; 2020-11-30)
PROC: 03JY0ZZ Inspection of Upper Artery, Open Approach (ICD-10-PCS; 2020-11-30)
DX: I21.4 Non-ST elevation (NSTEMI) myocardial infarction (principal); I95.9 Hypotension, unspecified; I51.81 Takotsubo syndrome; E03.9 Hypothyroidism, unspecified; G47.33 Obstructive sleep apnea (adult) (pediatric); I25.10 Atherosclerotic heart disease of native coronary artery without angina pectoris; K21.9 Gastro-esophageal reflux disease without esophagitis; F32.9 Major depressive disorder, single episode, unspecified; I48.0 Paroxysmal atrial fibrillation; D64.9 Anemia, unspecified; Z90.710 Acquired absence of both cervix and uterus; Z88.0 Allergy status to penicillin; Z88.2 Allergy status to sulfonamides
CPT/HCPCS: 36415; 71045; 76937; 80048; 80053; 80061; 80076; 83036; 83735; 83880; 84439; 84443; 84484; 85025; 85347; 85610; 85730; 87081; 93005; 93306; 93458; 96365; 96375; 97110; 97161; 97530; 99152; 99285; A4620; A5120; C1760; C1769; C1894; G0378; J1250; J1265; J1644; J2001; J2250; J2405; J3010; J3490; J7030; J7040; Q9967

== ENCOUNTER 2020-12-22 17:40 | Emergency (ER) | payer MEDICAID ==
[~2020-12-22] VITALS: Ht 154.9 cm; Wt 79.5 kg
[~2020-12-22 17:40] MED LIST changes: +AMIO200T67 PO; +APIX5TAB3 PO; +ASPI-1071 PO; +ATOR20TA66 PO; +ESTR10TA4 VG; +FURO-150 PO; -LEVO100T PO; +LEVO25TA7 PO; +MIDO5TAB4 PO; -PANT-47 PO; +PANT20TA18 PO
--- NOTE | 2020-12-22 18:39 | NUR ---
ELISEO MORAIEND [phone]
[2020-12-22 18:56] LABS: BASOPHILS % (AUTO) 0.8 % (0-1); EOSINOPHILS # (AUTO) 0.3 X10'3 (0-0.9); EOSINOPHILS % (AUTO) 7.4 % (0-6); HEMATOCRIT 34.7 % (35.0-45.0); HEMOGLOBIN 11.4 g/dl (12.0-16.0); LYMPHOCYTES # (AUTO) 1.4 X10'3 (1.1-4.8); LYMPHOCYTES % (AUTO) 29.5 % (21-51); MEAN CORPUSCULAR HEMOGLOBIN 31.1 PG (27.0-31.0); MEAN CORPUSCULAR HGB CONC 32.9 g/dL (33.0-36.5); MEAN CORPUSCULAR VOLUME 94.4 FL (78-98); MEAN PLATELET VOLUME 9.8 FL (7.4-10.4); MONOCYTES # (AUTO) 0.6 X10'3 (0-0.9); MONOCYTES % (AUTO) 12.4 % (2-12); NEUTROPHILS # (AUTO) 2.3 X10'3 (1.8-7.7); NEUTROPHILS % (AUTO) 49.9 % (42-75); PLATELET COUNT 201 X10'3 (140-440); RED BLOOD COUNT 3.68 X10'6 (4.20-5.60); RED CELL DISTRIBUTION WIDTH 12.7 % (11.5-14.5); WHITE BLOOD COUNT 4.6 X10'3 (4.5-11.0)
[2020-12-22 19:02] LABS: ALANINE AMINOTRANSFERASE 21 U/L (12-78); ALBUMIN 3.1 G/DL (3.4-5.0); ALBUMIN/GLOBULIN RATIO 0.9 (1.1-1.5); ALKALINE PHOSPHATASE 111 IU/L (46-116); ANION GAP 9 (8-16); ASPARTATE AMINO TRANSFERASE 23 U/L (10-37); BILIRUBIN,TOTAL 0.4 MG/DL (0.1-1.0); BLOOD UREA NITROGEN 15 MG/DL (7-18); CALCIUM 8.1 MG/DL (8.5-10.1); CHLORIDE 110 MMOL/L (99-107); CREATININE 0.88 MG/DL (0.40-0.90); GLUCOSE 116 MG/DL (70-104); POTASSIUM 3.4 MMOL/L (3.5-5.1); SODIUM 146 MMOL/L (135-145); TOTAL CARBON DIOXIDE 27.1 MMOL/L (24-32); TOTAL PROTEIN 6.7 G/DL (6.4-8.2); eGFR 65 ML/MIN
[2020-12-22] MEDS ORDERED: normal saline 1000ML IV soln IVB ONE (19:20)
[2020-12-22 19:47] VITALS: BP 121/67
== END 2020-12-22 20:33 | disposition home or self-care (01) ==
LOC: ER 17:41
DX: R07.9 Chest pain, unspecified (principal); R05.9 Cough, unspecified; R06.02 Shortness of breath; R11.0 Nausea; K21.9 Gastro-esophageal reflux disease without esophagitis; E07.9 Disorder of thyroid, unspecified; F32.9 Major depressive disorder, single episode, unspecified; Z88.0 Allergy status to penicillin; Z88.2 Allergy status to sulfonamides
CPT/HCPCS: 36415; 71045; 80053; 83880; 84484; 85025; 85610; 93005; 99285; J7030

== ENCOUNTER 2021-05-07 14:06 | Outpatient (CLI) | payer MEDICAID | END 2021-05-07 23:59 | disposition home or self-care (01) | LOC: CARD DIAG 14:06 | PROVIDERS: ATTEND Internal Medicine Cardiovascular Disease | DX: I08.8 Other rheumatic multiple valve diseases (principal); I50.9 Heart failure, unspecified | CPT/HCPCS: 93306 ==

== ENCOUNTER 2021-05-11 10:43 | Emergency (ER) | payer MEDICAID ==
[~2021-05-11] VITALS: Ht 165.1 cm; Wt 68.2 kg
[2021-05-11 11:09] VITALS: BP 136/75
== END 2021-05-11 12:56 | disposition home or self-care (01) ==
LOC: ER 10:43
DX: S80.211A Abrasion, right knee, initial encounter (principal); K21.9 Gastro-esophageal reflux disease without esophagitis; F32.9 Major depressive disorder, single episode, unspecified; Z88.0 Allergy status to penicillin; Z88.2 Allergy status to sulfonamides; Z79.899 Other long term (current) drug therapy; X58.XXXA Exposure to other specified factors, initial encounter; Y93.89 Activity, other specified; Y92.89 Other specified places as the place of occurrence of the external cause; Y99.8 Other external cause status
CPT/HCPCS: 73564; 99283

== ENCOUNTER 2021-12-05 22:18 | Emergency (ER) | payer MEDICARE, MEDICAID ==
[~2021-12-05] VITALS: Ht 154.9 cm; Wt 80.9 kg
[~2021-12-05 22:18] MED LIST changes: +AMIO100T4 PO; -AMIO200T67 PO; -ASPI-1071 PO; -ESTR10TA4 VG; -FURO-150 PO; +HYDR50TA65 PO; +ISOS30TA84 PO; +LOSA25TA96 PO; -MIDO5TAB4 PO; +NITR0.4T51 SL
[2021-12-05 22:56] LABS: BASOPHILS % (AUTO) 0.4 % (0-1); EOSINOPHILS # (AUTO) 0.2 X10'3 (0-0.9); EOSINOPHILS % (AUTO) 2.6 % (0-6); HEMATOCRIT 38.9 % (35.0-45.0); LYMPHOCYTES # (AUTO) 1.2 X10'3 (1.1-4.8); LYMPHOCYTES % (AUTO) 17.1 % (21-51); MEAN CORPUSCULAR HEMOGLOBIN 31.8 PG (27.0-31.0); MEAN CORPUSCULAR HGB CONC 33.6 g/dL (33.0-36.5); MEAN CORPUSCULAR VOLUME 94.9 FL (78-98); MONOCYTES # (AUTO) 0.8 X10'3 (0-0.9); MONOCYTES % (AUTO) 11.2 % (2-12); NEUTROPHILS # (AUTO) 4.8 X10'3 (1.8-7.7); NEUTROPHILS % (AUTO) 68.7 % (42-75); PLATELET COUNT 161 X10'3 (140-440); RED CELL DISTRIBUTION WIDTH 12.9 % (11.5-14.5); WHITE BLOOD COUNT 6.9 X10'3 (4.5-11.0)
[2021-12-05 23:08] LABS: ALANINE AMINOTRANSFERASE 29 U/L (12-78); ALBUMIN 3.6 G/DL (3.4-5.0); ALBUMIN/GLOBULIN RATIO 1.1 (1.1-1.5); ALKALINE PHOSPHATASE 100 IU/L (46-116); ANION GAP 9 (8-16); ASPARTATE AMINO TRANSFERASE 24 U/L (10-37); BILIRUBIN,TOTAL 0.7 MG/DL (0.1-1.0); BLOOD UREA NITROGEN 19 MG/DL (7-18); BUN/CREATININE RATIO 21.8 (6.6-38.0); CALCIUM 8.8 MG/DL (8.5-10.1); CHLORIDE 105 MMOL/L (99-107); CREATININE 0.87 MG/DL (0.40-0.90); GLUCOSE 110 MG/DL (70-104); POTASSIUM 3.5 MMOL/L (3.5-5.1); SODIUM 141 MMOL/L (135-145); TOTAL CARBON DIOXIDE 26.6 MMOL/L (24-32); eGFR 65 ML/MIN
[2021-12-06 03:25] VITALS: BP 134/87
== END 2021-12-06 04:35 | disposition left against medical advice (07) ==
LOC: ER 22:19
DX: R07.89 Other chest pain (principal); Z53.21 Procedure and treatment not carried out due to patient leaving prior to being seen by health care provider
CPT/HCPCS: 36415; 71045; 80053; 83880; 84484; 85025; 93005

== ENCOUNTER 2022-02-02 18:38 | Inpatient (IN) | payer MEDICARE, MEDICAID ==
[~2022-02-02] VITALS: Ht 154.9 cm; Wt 84.1 kg
[2022-02-02 19:46] LABS: BASOPHILS % (AUTO) 0.9 % (0-1); EOSINOPHILS # (AUTO) 0.2 X10'3 (0-0.9); EOSINOPHILS % (AUTO) 5.1 % (0-6); HEMATOCRIT 38.2 % (35.0-45.0); HEMOGLOBIN 13.1 g/dl (12.0-16.0); LYMPHOCYTES # (AUTO) 1.1 X10'3 (1.1-4.8); MEAN CORPUSCULAR HEMOGLOBIN 32.2 PG (27.0-31.0); MEAN CORPUSCULAR HGB CONC 34.2 g/dL (33.0-36.5); MEAN CORPUSCULAR VOLUME 94.1 FL (78-98); MEAN PLATELET VOLUME 9.1 FL (7.4-10.4); MONOCYTES # (AUTO) 0.5 X10'3 (0-0.9); MONOCYTES % (AUTO) 11.9 % (2-12); NEUTROPHILS # (AUTO) 2.6 X10'3 (1.8-7.7); NEUTROPHILS % (AUTO) 57.1 % (42-75); PLATELET COUNT 183 X10'3 (140-440); RED BLOOD COUNT 4.06 X10'6 (4.20-5.60); RED CELL DISTRIBUTION WIDTH 12.2 % (11.5-14.5); WHITE BLOOD COUNT 4.5 X10'3 (4.5-11.0)
--- NOTE | 2022-02-02 19:48 | NUR ---
PT STATED IN TRIAGE THEY WANTED TO LEAVE R/T LONG WAIT TIMES. ADVISED PT NOT TO LEAVE WITHOUT BEING SEEN IT COULD RESULT IN BODILY HARM INCLUDING .
[2022-02-02 19:56] LABS: ALANINE AMINOTRANSFERASE 24 U/L (12-78); ALBUMIN 3.5 G/DL (3.4-5.0); ALKALINE PHOSPHATASE 95 IU/L (46-116); ANION GAP 7 (8-16); ASPARTATE AMINO TRANSFERASE 20 U/L (10-37); BILIRUBIN,TOTAL 0.6 MG/DL (0.1-1.0); BLOOD UREA NITROGEN 16 MG/DL (7-18); BUN/CREATININE RATIO 20.3 (6.6-38.0); CALCIUM 8.9 MG/DL (8.5-10.1); CHLORIDE 106 MMOL/L (99-107); CREATININE 0.79 MG/DL (0.40-0.90); GLUCOSE 93 MG/DL (70-104); POTASSIUM 3.4 MMOL/L (3.5-5.1); SODIUM 141 MMOL/L (135-145); TOTAL CARBON DIOXIDE 27.7 MMOL/L (24-32); TOTAL PROTEIN 6.9 G/DL (6.4-8.2); eGFR 73 ML/MIN
--- NOTE | 2022-02-02 20:17 | NUR ---
CALLED PT AND NOTIFIED OF TROP LVL. RECOMMENDED PT COMES BACK TO HOSPITAL TO BE SEEN. PT AGREED
[2022-02-02 23:34] LABS: APTT 29 SECONDS (22-32)
[2022-02-03] MEDS ORDERED: magnesium Cl slow-release 64mg tablet PO PRN (00:35)
[2022-02-03] MEDS ORDERED: acetaminophen 650mg rectal suppository RC PRN (00:35)
[2022-02-03] MEDS ORDERED: diphenhydrAMINE 50 mg/ml inj IV PRN (00:35)
[2022-02-03] MEDS ORDERED: ipratropium/albuterol 3ml nebule NEB PRN (00:35)
[2022-02-03] MEDS ORDERED: potassium Cl 20 mEq SR tablet PO PRN (00:35)
[2022-02-03] MEDS ORDERED: diphenhydrAMINE 25mg capsule PO PRN (00:35)
[2022-02-03] MEDS ORDERED: ondansetron 4mg rapidly disintigrating tab PO PRN (00:35)
[2022-02-03] MEDS ORDERED: morphine 2 MG/ML inj. syringe IV PRN ×2 (00:35)
[2022-02-03] MEDS ORDERED: potassium Cl 40MEQ/1/2NS 520ml 520 ML IV PRN (00:35)
[2022-02-03] MEDS ORDERED: bisacodyl 10mg suppository rectal RC PRN (00:35)
[2022-02-03] MEDS ORDERED: acetaminophen 325mg tablet PO PRN (00:35)
[2022-02-03] MEDS ORDERED: magnesium hydroxide 30ml (MOM) UD suspension PO PRN (00:35)
[2022-02-03] MEDS ORDERED: HYDROcodone/acetaminophen 5mg/325mg tablet PO PRN (00:35)
[2022-02-03] MEDS ORDERED: ondansetron/PF 4mg/2ml inj IV PRN (00:35)
[2022-02-03] MEDS ORDERED: mag hydrox/Alum hydrox/simeth 30ml oral suspension PO PRN (00:35)
[2022-02-03] MEDS ORDERED: magnesium 4gm in 100ml NS 100 ML IV PRN (00:35)
[2022-02-03 00:46] LABS: CLARITY,URINE SLIGHTLY CLOUDY (Clear); COLOR,URINE YELLOW (Yellow); GLUCOSE, URINE NEGATIVE (Neg); KETONES,URINE 15 mg/dl (Neg); LEUKOCYTE ESTERASE ,URINE NEGATIVE (Neg); NITRITES, URINE NEGATIVE (Neg); OCCULT BLOOD,URINE TRACE-INTACT (Neg); PROTEIN,URINE NEGATIVE (Neg)
[2022-02-03 00:48] LABS: UA COLLECTION TYPE CLN CATCH MIDSTREAM
[2022-02-03 00:51] LABS: D-DIMER 0.24 MG/L FEU (0-0.50)
[2022-02-03 00:53] LABS: BACTERIA,URINE 3+ /HPF (Neg); MUCUS STRANDS FEW /LPF (Neg); SQUAMOUS EPITHELIAL CELL,UR FEW /LPF (FEW); TRANSITIONAL EPI CELLS,URINE FEW /HPF; WBC,URINE 0-4 /HPF (0-4)
[2022-02-03] MEDS: normal saline 1000ml 1,000 ML IV SCH ×2 (01:34→10:51)
[2022-02-03] MEDS ORDERED: AMIO200T61 PO (02:52)
[2022-02-03] MEDS ORDERED: LOSA25TA41 PO (02:52)
[2022-02-03] MEDS ORDERED: PANT20TA18 PO (02:54)
[2022-02-03] MEDS ORDERED: HYDR50TA65 PO (02:56)
[2022-02-03] MEDS ORDERED: ATOR20TA66 PO (02:56)
[2022-02-03] MEDS ORDERED: NITR0.4T51 SL (02:58)
[2022-02-03] MEDS ORDERED: nitroGLYCERIN 0.4mg SUBLingual tab SL PRN (03:30)
[2022-02-03] MEDS ORDERED: hydrOXYzine 25 MG tablet PO PRN (03:30)
[2022-02-03 07:23] LABS: MAGNESIUM 2.1 MG/DL (1.5-2.4); POTASSIUM 3.3 MMOL/L (3.5-5.1)
[2022-02-03] MEDS ORDERED: heparin, porcine 5000 units/ml vial SQ SCH (08:00)
[2022-02-03] MEDS ORDERED: atorvastatin 20mg tablet PO SCH (08:00)
[2022-02-03] MEDS ORDERED: apixaban 5mg tablet PO SCH (08:00)
[2022-02-03] MEDS ORDERED: K and/or MAG REPLACEMENT MC SCH (08:00)
[2022-02-03] MEDS ORDERED: levoTHYROXINE 25mcg tablet PO SCH (08:00)
[2022-02-03] MEDS ORDERED: losartan 25mg tablet PO SCH (08:00)
[2022-02-03] MEDS ORDERED: pantoprazole 40mg Tablet.DR PO SCH (08:00)
[2022-02-03] MEDS ORDERED: methylPREDNISolone sod succ 125mg/2ml vial IV SCH (08:00)
[2022-02-03] MEDS ORDERED: levoFLOXACIN-Levaquin 500mg/D5 100 ML IV SCH (08:00)
[2022-02-03] MEDS ORDERED: aspirin 81mg, enteric-coated 1 TAB TABLET.DR PO SCH (08:00)
[2022-02-03] MEDS ORDERED: amiodarone 100mg tablet PO SCH (08:00)
[2022-02-03] MEDS ORDERED: docusate sod 100mg capsule PO SCH (08:00)
[2022-02-03] MEDS ORDERED: amiodarone 200mg tablet PO SCH (08:58)
[2022-02-03] MEDS: potassium Cl 20 mEq SR tablet PO PRN ×2 (09:31→15:11)
[2022-02-03 11:41] LABS: BASOPHILS % (AUTO) 0.5 % (0-1); EOSINOPHILS # (AUTO) 0.1 X10'3 (0-0.9); EOSINOPHILS % (AUTO) 3.2 % (0-6); HEMATOCRIT 39.4 % (35.0-45.0); HEMOGLOBIN 13.1 g/dl (12.0-16.0); LYMPHOCYTES # (AUTO) 0.8 X10'3 (1.1-4.8); LYMPHOCYTES % (AUTO) 18.7 % (21-51); MEAN CORPUSCULAR HEMOGLOBIN 31.5 PG (27.0-31.0); MEAN CORPUSCULAR HGB CONC 33.2 g/dL (33.0-36.5); MEAN CORPUSCULAR VOLUME 94.9 FL (78-98); MEAN PLATELET VOLUME 8.8 FL (7.4-10.4); MONOCYTES # (AUTO) 0.3 X10'3 (0-0.9); MONOCYTES % (AUTO) 6.3 % (2-12); NEUTROPHILS # (AUTO) 2.9 X10'3 (1.8-7.7); NEUTROPHILS % (AUTO) 71.3 % (42-75); PLATELET COUNT 163 X10'3 (140-440); RED BLOOD COUNT 4.16 X10'6 (4.20-5.60); RED CELL DISTRIBUTION WIDTH 12.4 % (11.5-14.5)
[2022-02-03 12:26] LABS: ALANINE AMINOTRANSFERASE 22 U/L (12-78); ALBUMIN 3.2 G/DL (3.4-5.0); ALBUMIN/GLOBULIN RATIO 0.9 (1.1-1.5); ALKALINE PHOSPHATASE 94 IU/L (46-116); ANION GAP 7 (8-16); ASPARTATE AMINO TRANSFERASE 23 U/L (10-37); BILIRUBIN,TOTAL 0.8 MG/DL (0.1-1.0); BLOOD UREA NITROGEN 12 MG/DL (7-18); BUN/CREATININE RATIO 17.9 (6.6-38.0); CALCIUM 8.5 MG/DL (8.5-10.1); CHLORIDE 106 MMOL/L (99-107); CREATININE 0.67 MG/DL (0.40-0.90); GLUCOSE 111 MG/DL (70-104); POTASSIUM 3.9 MMOL/L (3.5-5.1); SODIUM 140 MMOL/L (135-145); TOTAL CARBON DIOXIDE 26.7 MMOL/L (24-32); TOTAL PROTEIN 6.6 G/DL (6.4-8.2); eGFR 88 ML/MIN
--- NOTE | 2022-02-03 15:03 | NUR ---
pt sleeping on bed. resp easy and unlabored. pt remains on monitor. no distress noted. awaiting inpt bed. will continue to monitor.
--- NOTE | 2022-02-03 17:10 | NUR ---
Page Sent promotional table spacer PAGER ID: [phone] MESSAGE: Gloria Christine in ER rm 10, influenza is negative
--- NOTE | 2022-02-03 17:15 | NUR ---
pt amb to bathroom with steady gait. no distress noted. pt replaced on monitor. HR remains the same at 62 and BP was 114/61
[2022-02-03] MEDS ORDERED: LEVO-65 PO (17:41)
[2022-02-03] MEDS ORDERED: PRED20TA PO (17:41)
[2022-02-03 18:09] VITALS: BP 146/75
[2022-02-03] MEDS ORDERED: temazepam 15mg capsule PO PRN (21:00)
== END 2022-02-03 18:09 | disposition home or self-care (01) | DRG 202 ==
LOC: ER 18:40 → ED HOLD 02-03 00:41
PROVIDERS: ADMIT Family Medicine; ATTEND Family Medicine
DX: J20.9 Acute bronchitis, unspecified (principal); I21.A1 Myocardial infarction type 2; I13.0 Hypertensive heart and chronic kidney disease with heart failure and stage 1 through stage 4 chronic kidney disease, or unspecified chronic kidney disease; I50.32 Chronic diastolic (congestive) heart failure; Z20.822 Contact with and (suspected) exposure to COVID-19; I27.20 Pulmonary hypertension, unspecified; F32.A Depression, unspecified; K21.9 Gastro-esophageal reflux disease without esophagitis; E03.9 Hypothyroidism, unspecified; E78.5 Hyperlipidemia, unspecified; E87.6 Hypokalemia; F41.1 Generalized anxiety disorder; I25.10 Atherosclerotic heart disease of native coronary artery without angina pectoris; I48.91 Unspecified atrial fibrillation; J45.909 Unspecified asthma, uncomplicated; K57.90 Diverticulosis of intestine, part unspecified, without perforation or abscess without bleeding; N18.9 Chronic kidney disease, unspecified; Z79.01 Long term (current) use of anticoagulants; Z79.82 Long term (current) use of aspirin; I25.2 Old myocardial infarction; Z83.3 Family history of diabetes mellitus; Z90.710 Acquired absence of both cervix and uterus; Z88.0 Allergy status to penicillin; Z88.2 Allergy status to sulfonamides; Z79.899 Other long term (current) drug therapy
CPT/HCPCS: 36415; 71045; 80053; 81001; 83690; 83735; 83880; 84100; 84132; 84443; 84484; 85025; 85379; 85610; 85730; 87081; 87502; 87503; 87811; 93005; 94760; 99285; G0378; J1644; J1956; J2930; J7030

== ENCOUNTER 2023-12-27 13:29 | Emergency (ER) | payer MEDICARE, MEDICAID ==
[~2023-12-27] VITALS: Ht 154.9 cm; Wt 79.7 kg
[~2023-12-27 13:29] MED LIST changes: -ISOS30TA84 PO; +LOSA25TA41 PO; -LOSA25TA96 PO
[2023-12-27] MEDS ORDERED: LIDOcaine 1.5% w/epinephrine 1:200,000 5ml ampul IJ ONE (14:15)
[2023-12-27] MEDS ORDERED: LIDOcaine 1% W/epiNEPHrine 1:100,000 20ml vial IJ ONE (14:15)
[2023-12-27] MEDS ORDERED: DOXY100C43 PO (15:01)
[2023-12-27 15:17] VITALS: BP 132/78; PULSE 78; RESP 18; TEMP 98.1; O2SAT 97
== END 2023-12-27 15:18 | disposition home or self-care (01) ==
LOC: ER 13:30
DX: L72.9 Follicular cyst of the skin and subcutaneous tissue, unspecified (principal); I25.2 Old myocardial infarction; K21.9 Gastro-esophageal reflux disease without esophagitis; F32.A Depression, unspecified; Z88.0 Allergy status to penicillin; Z88.2 Allergy status to sulfonamides; Z79.899 Other long term (current) drug therapy; Z90.710 Acquired absence of both cervix and uterus; Z98.890 Other specified postprocedural states
CPT/HCPCS: 87070; 99283; A6258; A6266; A6449